=== PATIENT | male | born 1955 | race Caucasian/White ===

== ENCOUNTER 2016-09-13 06:38 | Day surgery (SDC) | payer OTHER ==
[2016-09-08 10:24] VITALS: BMI 31.9
[~2016-09-13 06:38] MED LIST: LACTATED RINGERS SOLUTION 1,000 ML IV SCH; oxyCODONE HCL 5 MG TABLET PO PRN
[2016-09-13] MEDS ORDERED: methylPREDNISolone ACET (DEPO) 40 MG/1 ML VIAL ONE (07:28)
[2016-09-13] MEDS ORDERED: BUPIVACAINE HCL/PF 0.5% (5MG/ML) 10 ML VIAL ONE (07:28)
[2016-09-13] MEDS ORDERED: SUCCINYLCHOLINE CHLORIDE 200 MG/10 ML VIAL ONE (07:44)
[2016-09-13] MEDS ORDERED: ceFAZolin SODIUM 1 GM VIAL ONE (08:48)
[2016-09-13] MEDS ORDERED: MIDAZOLAM HCL 2 MG/2 ML SINGLE DOSE VIAL ONE ×2 (08:48)
[2016-09-13] MEDS ORDERED: ONDANSETRON 4 MG/2 ML VIAL ONE (08:50)
[2016-09-13] MEDS ORDERED: DEXAMETHASONE SOD PHOSPHATE 4 MG/1 ML VIAL ONE (08:50)
[2016-09-13] MEDS ORDERED: DESFLURANE GAS 240 ML BOTTLE IH ONE (08:51)
[2016-09-13] MEDS ORDERED: PROPOFOL 20 ML ONE (09:18)
[2016-09-13 10:35] VITALS: TEMP 97
[2016-09-13 11:15] VITALS: BP 136/79; PULSE 67
--- NOTE | 2016-09-13 18:59 | OP ---
DATE OF OPERATION: 09/13/2016 PREOPERATIVE DIAGNOSIS: Lumbar spinal instability. POSTOPERATIVE DIAGNOSIS: Lumbar spinal instability. PROCEDURE PERFORMED: Lumbar facet injection, left and right side at L4-L5 under fluoroscopic guidance. SURGEON: Sandra Perez M.D. DECISION SCIENCE ANALYST: None. ANESTHESIOLOGIST: Andrea Dye MD ANESTHESIA: Monitored anesthesia care was performed. PROCEDURE: The procedure consisted of the patient being brought in the operating room, gently transferred on the stretcher on the table with all bony prominences well padded. The patient was placed in the prone position. The patient's back was prepped and draped in sterile fashion with sterile technique throughout the procedure to minimize risk of infection. Complete risks and benefits discussion was conducted with the patient, risks and benefits included but not limited to infection, bleeding, , paralysis and need for repeat surgery. Patient asked questions about the procedure and decided to proceed with surgical procedure. The appropriate time out was conducted identifying correct patient correct location site of the surgical treatment with all the people in the operating room including anesthesiologist in agreement with the site and location..With sterile preparation of the back, fluoroscopic guidance was used identify the left and the the right facet. A 22 gauge spinal needle was introduced into the L4-5 facets on the left and right side. A solution with 1 mL of Depo-Medrol with 40mg/cc and 4 mL of Marcaine was instilled into each side. Patient was then gently awoken from anesthesia. The needles had been withdrawn. Transferred from the operating room to the recovery room in satisfactory condition. There were no intraoperative complications. SANDRA PEREZ M.D. [id number] MTDD
== END 2016-09-13 11:31 | disposition home or self-care (01) ==
LOC: FASU 06:38
PROVIDERS: ATTEND Orthopaedic Surgery
PROC: 3E0T3CZ (ICD-10-PCS; 2016-09-13)
PROC: BR16ZZZ Fluoroscopy of Lumbar Facet Joint(s) (ICD-10-PCS; 2016-09-13)
PROC: 3E0T33Z Introduction of Anti-inflammatory into Peripheral Nerves and Plexi, Percutaneous Approach (ICD-10-PCS; principal; 2016-09-13 09:17)
DX: M53.2X6 Spinal instabilities, lumbar region (principal)
CPT/HCPCS: 72100-TC; 76000-TC; 94760